=== PATIENT | female | born 1990 | race Caucasian/White ===

== ENCOUNTER 2018-12-17 08:48 | Emergency (ER) | payer OTHER ==
[2018-12-17 09:26] VITALS: BP 118/74
--- NOTE | 2018-12-17 09:50 | UC ---
UC General HPI - HPI Summary HPI Summary: c/o productive cough, body aches, head congestion, Sore throat, HERNANDEZ, fatigue that started Monday. Denies any fever. Needs work note [ End ] no fever, cp or asthma but lungs do feel tight. txing with mucinex. - History of Current Complaint Chief Complaint: UCRespiratory Stated Complaint: ST,COUGH,CONGESTION Time Seen by Provider: 12/17/18 09:41 Hx Obtained From: Patient Hx Last Menstrual Period: 12/07/18 Onset/Duration: Gradual Onset Timing: Constant Pain Intensity: 3 - Allergy/Home Medications Allergies/Adverse Reactions: Allergies Allergy/AdvReac Type Severity Reaction Status Date / Time pseudoephedrine Allergy Anxiety Verified 12/17/18 09:19 [From Sudafed] Home Medications: Home Medications Phenylephrine/Dm/Acetaminop/GG [Mucinex Fast-Max Cold Flu] 2 tab PO Q4H PRN 09/30 [History Confirmed 12/17/18] PMH/Surg Hx/FS Hx/Imm Hx Psychological History: Anxiety, Depression Other History Of: Negative For: HIV, Hepatitis B, Hepatitis C - Surgical History Surgical History: Yes Surgery Procedure, Year, and Place: c-sect 08/24, d and c after miscarriage 2010 - Family History Known Family History: Negative: None - Social History Alcohol Use: Occasionally Substance Use Type: None Smoking Status (MU): Heavy Every Day Tobacco Smoker Type: Cigarettes Amount Used/How Often: 1 PPD Length of Time of Smoking/Using Tobacco: 8 Years Have You Smoked in the Last Year: Yes Household Exposure Type: Cigarettes - Immunization History Most Recent Influenza Vaccination: Current for Review of Systems All Other Systems Reviewed And Are Negative: Yes Constitutional: Negative: Fever Skin: Negative: Rash Eyes: Negative: Eye Redness ENT: Positive: Sore Throat, Sinus Congestion Respiratory: Positive: Cough Cardiovascular: Negative: Palpitations, Chest Pain Musculoskeletal: Positive: Myalgia Neurological: Positive: Headache Physical Exam Triage Information Reviewed: Yes Appearance: Well-Appearing Vital Signs: Initial Vital Signs Temp 97.7 F 12/17/18 09:22 Pulse 92 12/17/18 09:22 Resp 16 12/17/18 09:22 BP 118/74 12/17/18 09:22 Pulse Ox 100 12/17/18 09:22 Vital Signs Reviewed: Yes Eyes: Positive: Conjunctiva Clear ENT: Positive: Pharyngeal erythema - mild, Nasal congestion, Nasal drainage - clear, TMs normal, Uvula midline. Negative: Trismus, Muffled voice, Hoarse voice Neck: Positive: Supple, Tenderness @ - peritonsil, Enlarged Nodes @ - peritonsil Respiratory: Positive: Lungs clear, No respiratory distress, Decreased breath sounds - slight. Negative: Crackles, Rhonchi, Wheezing Cardiovascular: Positive: RRR, No Murmur Abdomen Description: Positive: Nontender Musculoskeletal: Positive: ROM Intact Neurological: Positive: Alert Psychological: Positive: Age Appropriate Behavior Skin Exam: Normal Course/Dx - Differential Dx - Multi-Symptom Differential Diagnoses: Other - no concen for bacterial infection. - Diagnoses Provider Diagnosis: URI (upper respiratory infection), Bronchitis Discharge - Sign-Out/Discharge Documenting (check all that apply): Patient Departure All imaging exams completed and their final reports reviewed: No Studies - Discharge Plan Condition: Stable Disposition: HOME Prescriptions: Albuterol HFA INHALER* [Ventolin HFA Inhaler*] 2 puff INH Q6H #1 mdi Patient Education Materials: Upper Respiratory Infection (DC), Acute Bronchitis (ED) Forms: *Work Release Referrals: Latha Boudreaux NP [Primary Care Provider] - 7 Days - Billing Disposition and Condition Condition: STABLE Disposition: Home
== END 2018-12-17 09:56 | disposition home or self-care (01) ==
LOC: UCCORT 08:48
DX: J06.9 Acute upper respiratory infection, unspecified (principal); J40 Bronchitis, not specified as acute or chronic; F17.210 Nicotine dependence, cigarettes, uncomplicated
CPT/HCPCS: 99212; G0463

== ENCOUNTER 2019-03-03 11:15 | Emergency (ER) | payer OTHER ==
[2019-03-03 12:08] VITALS: BP 126/81
[2019-03-03] MEDS ORDERED: Albuterol/Ipratropium NEB.SOL* Albuterol 2.5 MG/Ipratropium 0.5 MG 3 ML INH ONE (12:10)
--- NOTE | 2019-03-03 12:10 | UC ---
Respiratory Complaint HPI - HPI Summary HPI Summary: Pt presents with c/o nasal congestion, chest congestion, cough, wheezing and sob X 4 days. Pt is a 1/2 ppd smoker. Pt has an albuterol inh that she has been using with some relief. - History of Current Complaint Chief Complaint: UCRespiratory Stated Complaint: CONGESTION,COUGH,BODY AND HEAD ACHES Time Seen by Provider: 03/03/19 11:54 Hx Obtained From: Patient Hx Last Menstrual Period: ONSET TODAY ?: No Onset/Duration: Gradual Onset, Lasting Days, Worse Since - onset Timing: Constant Severity Initially: Mild Severity Currently: Moderate Pain Intensity: 5 Character: Cough: Productive Aggravating Factors: Exertion, Deep Breaths, Recumbent Position Alleviating Factors: Bronchodilator Associated Signs And Symptoms: Positive: Wheezing, URI, Nasal Congestion - Risk Factors Pulmonary Embolism Risk Factors: Smoking Cardiac Risk Factors: Smoking Pseudomonas Risk Factors: Negative Tuberculosis Risk Factors: Smoking - Allergies/Home Medications Allergies/Adverse Reactions: Allergies Allergy/AdvReac Type Severity Reaction Status Date / Time pseudoephedrine Allergy Anxiety Verified 03/03/19 11:55 [From Sudafed] Home Medications: Home Medications Albuterol HFA INHALER* [Ventolin HFA Inhaler*] 2 puff INH Q6H PRN 03/03/19 [ History Confirmed 03/03/19] Phenylephrine/Dm/Acetaminop/GG [Tylenol Cold-Flu Severe Caplet] 2 each PO PRN [History] hydrOXYzine HCL TAB* [Atarax TAB 50 MG *] 50 mg PO BEDTIME PRN 03/03/19 [ History Confirmed 03/03/19] PMH/Surg Hx/FS Hx/Imm Hx Previously Healthy: Yes Psychological History: Anxiety Other History Of: Negative For: HIV, Hepatitis B, Hepatitis C - Surgical History Surgical History: Yes Surgery Procedure, Year, and Place: c-sect 08/24, d and c after miscarriage 2010. - Family History Known Family History: Negative: None - Social History Occupation: Employed Full-time Alcohol Use: None Substance Use Type: None Smoking Status (MU): Heavy Every Day Tobacco Smoker Type: Cigarettes Amount Used/How Often: 1 PPD Length of Time of Smoking/Using Tobacco: 8 Years Have You Smoked in the Last Year: Yes Household Exposure Type: Cigarettes - Immunization History Most Recent Influenza Vaccination: Current for 2014/2015 Season Review of Systems All Other Systems Reviewed And Are Negative: Yes Constitutional: Positive: Fatigue Skin: Positive: Negative Eyes: Positive: Negative ENT: Positive: Sinus Congestion Respiratory: Positive: Shortness Of Breath, Cough Cardiovascular: Positive: Negative Gastrointestinal: Positive: Negative Genitourinary: Positive: Negative Motor: Positive: Negative Neurovascular: Positive: Negative Musculoskeletal: Positive: Negative Neurological: Positive: Negative Psychological: Positive: Negative Is Patient Immunocompromised?: No Physical Exam Triage Information Reviewed: Yes Appearance: Ill-Appearing Vital Signs: Initial Vital Signs Temp 98.3 F 03/03/19 11:59 Pulse 101 03/03/19 11:59 Resp 22 03/03/19 11:59 BP 126/81 03/03/19 11:59 Pulse Ox 95 03/03/19 11:59 Vital Signs Reviewed: Yes Eye Exam: Normal ENT: Positive: Nasal congestion Dental Exam: Normal Neck exam: Normal Respiratory: Positive: Decreased breath sounds, Wheezing Cardiovascular: Positive: Tachycardia Musculoskeletal Exam: Normal Neurological Exam: Normal Psychological Exam: Normal Skin Exam: Normal Diagnostics - Radiology No standard instances Radiology Interpretation Completed By: Radiologist - Corporate Director Of Human Resources: Guzman Wheat C ([id number]) Race Steward: TRANG (GEORGIEANCE) Report Date: 12:17:00 Report Status: Final Start of Report Content = Patient Name: ELIS CASILLAS Medical Record#: [id number] Ordering Physician : Gisselle Egan SWIMMING POOL ATTENDANT Acct.#: [id number] : 1990 Age: 28 Sex: F Location: [facility] Exam Date: 03/03/191216 ADM Status: REG ER Order Information: CHEST PA LAT 2 VWS Accession Number: [id number] CPT: 97735 INDICATION: Cough, shortness of breath. History of tobacco use. COMPARISON: June 18, 2014 TECHNIQUE: Dual energy PA and lateral views of the chest were obtained. REPORT: Clear lungs and pleural spaces. Negative for pneumothorax. The heart, pulmonary vasculature, and mediastinal contours are unremarkable. Unremarkable osseous structures and soft tissue contours. IMPRESSION: #. No evidence for acute intrathoracic disease. <Electronically signed by Guzman Wheat MD in OV> [id number] Dictated By: Guzman Wheat MD Dictated Date/Time: 03/03/191240 Transcribed Date/Time: 03/03/191240 Copy to: CC:Gabi CROCKERP; Gisselle Egan SWIMMING POOL ATTENDANT; Hilario Hunter MD Imaging - [facility] - [facility] [address] [place] [address] ph [phone] ph [phone]) ph [phone]) End of Report Content Respiratory Course/Dx - Course Course Of Treatment: I decided to treat the pt with antibiotics given her long pack hx of smoking. Pt discussed quitting smoking during UC visit. - Differential Dx/Diagnosis Differential Diagnosis/HQI/PQRI: Bronchitis, Exacerbation Of COPD Provider Diagnosis: Pneumonia Discharge ED - Sign-Out/Discharge Documenting (check all that apply): Patient Departure All imaging exams completed and their final reports reviewed: Yes - Discharge Plan Condition: Stable Disposition: HOME Prescriptions: Benzonatate CAP* [Tessalon 100 MG CAP*] 200 mg PO Q8H PRN #30 cap PRN Reason: Cough DOXYcycline CAP(*) [DOXYcycline 100MG CAP(*)] 100 mg PO Q12H #20 cap predniSONE TAB* [Deltasone 10 MG TAB*] 30 mg PO DAILY #12 tab Patient Education Materials: Pneumonia (ED) Forms: *Work Release Referrals: Latha Boudreaux NP [Primary Care Provider] - If Needed - Billing Disposition and Condition Condition: STABLE Disposition: Home
== END 2019-03-03 13:05 | disposition home or self-care (01) ==
LOC: UCCORT 11:15
DX: J18.9 Pneumonia, unspecified organism (principal); F41.9 Anxiety disorder, unspecified; F17.210 Nicotine dependence, cigarettes, uncomplicated; Z79.899 Other long term (current) drug therapy; Z88.8 Allergy status to other drugs, medicaments and biological substances
CPT/HCPCS: 71046; 99212; A9270-GY; G0463

== ENCOUNTER 2019-05-28 12:17 | Emergency (ER) | payer SELFPAY ==
--- NOTE | 2019-05-28 12:21 | UC ---
Knee Pain HPI - HPI Summary HPI Summary: 28 yo female presents with LEFT knee injury. She tells me that yesterday she was at work and lifted a 1yo from the ground - pt lost her balance and fell to her left knee. Sustained small abrasion to her left knee. Since that time has had pain in her medial knee that radiates up her medial thigh. She washed the area, applied neosporin, and a bandage. Today pain in her knee has increased and she has a limp while walking. She is concerned for fracture. Denies numbness or tingling. Nothing OTC for discomfort other than RICE therapy. - History of Current Complaint Stated Complaint: WC S/P FALL LEFT KNEE/RIGHT HIP INJURY Time Seen by Provider: 05/28/19 12:20 Hx Obtained From: Patient Hx Last Menstrual Period: ONSET TODAY Onset/Duration: Sudden Onset Severity Initially: Moderate Severity Currently: Moderate Pain Intensity: 7 Pain Scale Used: 0-10 Numeric - Allergies/Home Medications Allergies/Adverse Reactions: Allergies Allergy/AdvReac Type Severity Reaction Status Date / Time pseudoephedrine Allergy Anxiety Verified 05/28/19 12:34 [From Sudafekevin] Home Medications: Home Medications Buprenorp/Nalox 8-2 MG FILM [Suboxone] 1 mis SL DAILY 05/28/19 [History Confirmed 05/28/19] PMH/Surg Hx/FS Hx/Imm Hx Psychological History: Anxiety Other History Of: Negative For: HIV, Hepatitis B, Hepatitis C - Surgical History Surgical History: Yes Surgery Procedure, Year, and Place: c-sect 08/24, d and c after miscarriage 2010. - Family History Known Family History: Negative: None - Social History Occupation: Employed Full-time Lives: With Family Alcohol Use: None Substance Use Type: None Smoking Status (MU): Heavy Every Day Tobacco Smoker Type: Cigarettes Amount Used/How Often: 1 PPD Length of Time of Smoking/Using Tobacco: 8 Years Have You Smoked in the Last Year: Yes Household Exposure Type: Cigarettes - Immunization History Most Recent Influenza Vaccination: Current for Season Review of Systems All Other Systems Reviewed And Are Negative: No Constitutional: Positive: Negative Skin: Positive: Other - Abrasion left knee Respiratory: Positive: Negative Cardiovascular: Positive: Negative Neurovascular: Positive: Negative Musculoskeletal: Positive: Other: - Left knee pain Neurological: Positive: Negative Psychological: Positive: Negative Physical Exam - Summary Physical Exam Summary: GENERAL: NAD. WDWN. No pain distress. SKIN: Superficial abrasion overlying medial patella. CHEST: No accessory muscle use. Breathing comfortably and in no distress. CV: Pulses intact popliteal, PT, and DP. Cap refill <2seconds MSK: LEFT KNEE: FROM. Moderate TTP about medial patella. Strength 5/5. Mild edema. No obvious bony deformities. No patella apprehension. Negative Shayy, A /P drawer, Jacky, and varus/valgus stress. NEURO: Alert. Sensations intact and symmetric B/L LEs PSYCH: Age appropriate behavior. Triage Information Reviewed: Yes Vital Signs: Vital Signs: Temp Pulse Resp BP Pulse Ox 97 F 75 16 129/73 100 05/28/19 12:36 05/28/19 12:36 05/28/19 12:36 05/28/19 12:36 05/28/19 12:36 Vital Signs Reviewed: Yes Diagnostics - Radiology Left knee XR Radiology Interpretation Completed By: Radiologist Summary of Radiographic Findings: IMPRESSION: Unremarkable left knee. Knee Pain Course/Dx - Course Course Of Treatment: XR as above. Suspect contusion/abrasion. Abrasion re-dressed with neosporin and telfa. Knee BHARAT wrapped. Advised to continue RICE therapy. May take tylenol/ibuprofen as directed for discomfort. - Differential Dx/Diagnosis Provider Diagnosis: Knee abrasion Discharge ED - Sign-Out/Discharge Documenting (check all that apply): Patient Departure All imaging exams completed and their final reports reviewed: Yes - Discharge Plan Condition: Stable Disposition: HOME Patient Education Materials: Abrasion (ED), Knee Pain (ED) Forms: *Work Release Referrals: Latha Boudreaux NP [Primary Care Provider] - Additional Instructions: If you develop a fever, shortness of breath, chest pain, new or worsening symptoms - please call your PCP or go to the ED immediately. The X-Ray of your knee was normal today. 1) Continue to rest, ice, and elevate your knee 2) Change the dressing to the abrasion daily until well healed. 3) Use the BHARAT wrap as needed for comfort 4) If your symptoms do not improve in 5-7 days, please be rechecked. - Billing Disposition and Condition Condition: STABLE Disposition: Home
--- OUTSIDE RECORDS SUMMARY | 2019-05-28 12:34 | XMS REPORT | Continuity of Care Document ---
:1990 External Reference #:[id number] Demographics Address [birth year][address] [address] Home Phone [phone] Mobile Phone [phone] Work Phone [phone] Email Address Preferred Language en Marital Status Declined to Specify/Unknown Buddhism Affiliation Unknown Race White Ethnic Group Declined to Specify/Unknown Author Name Camille Yuan FNP (transmitted by agent of provider Bri Fitzgerald) Address [address] [place] [id number] Care Team Providers Name Role Phone Gabi Boudreaux CLAIMS ADJUSTER CROP - Nurse Care Team Information Cat And Dog Bather Practitioner Problems Active Problems Provider Date Anxiety state Gabi Boudreaux FNP Onset: 01/14/2014 [facility] Onset: 11/06/2012 Opioid dependence Gabi Boudreaux FNP Onset: 10/27/2014 Abdominal mass Gabi Boudreaux FNP Onset: 02/20/2016 Note: 1.9 cm mass Document: 02/20/16 - Limited Abdominal Sonogram Document: 12/28 - ED History And Physical Social History Type Date Description Comments Sex Unknown Tobacco Use Start: Unknown currently smokes 1/2 Pack Daily ETOH Use Denies alcohol use Recreational Drug Use Denies Drug Use Tobacco Use Reviewed: 05/26/17 Patient is a current smoker, smokes every day Tobacco Use Start: Unknown smokes 1 ppd Tobacco Use Start: Unknown Heavy tobacco smoker (more than 10 cigarettes/day) Smoking Status Reviewed: 10/30/18 Patient is a current smoker, smokes every day Allergies, Adverse Reactions, Alerts Active Allergies Reaction Severity Comments Date NKDA 02/17/2015 Apples Swelling in mouth and throat 05/23/2011 Medications Active Medications SIG Qnty Indications Ordering Date Provider Metronidazole take 1 tablet by 14tabs Camille Yuan 11/02/2018 500mg mouth every 12 [employer] Tablets hours for 7 days. no alcohol consumption during treatment and for 24 hours after. Loestrin Fe 06/03 1 tab daily 140tabs Z30.011 [place] MD 06/12/2018 1-20mg-mcg Tablets Ibuprofen take one tablet by 90tabs Janusz, 06/15/2017 800mg Tablets mouth every 6 Jenniferleigh, hours as needed [employer] Hydroxyzine Pamoate Take One Capsule Unknown By Mouth AT 100mg Capsules Bedtime Docusate Sodium Take One Capsule Unknown 100mg By Mouth Twice A Capsules Day as Needed Suboxone Place Two Films Unknown 8-2mg Film Under The Tongue Every Day Maximum Daily Dose 2 Film Fluvoxamine Maleate take 2 and 1/2 Unknown tabs once per day 100mg Tablets at night Medications Administered in Office Medication SIG Qnty Indications Ordering Provider Date PPD Injection Camille Yuan FNP 10/30/2018 Immunizations CPT Code Status Date Vaccine Lot # [id number] Given 04/10/2018 Influenza Virus Vaccine, Quadrivalent, 36 Mos+, [id number] 58670 Given 05/26/2017 Influenza Virus Vaccine, Quadrivalent, Slit Virus, [id number] Im Use 63965 Given 02/22/2016 Influenza Virus Vaccine, Quadrivalent, 36 Mos+, [id number] .[id number] 12420 Given 02/10/2014 flu vaccination 42896 Given 05/25/2012 Gardasil 86304 Given 02/20/2012 Gardasil 15479 Given 02/13/2012 flu vaccination 81267 Given 12/20/2011 Gardasil 50509 Given 08/25/2011 Pneumovax Injection 18386 Given 08/25/2011 Tdap injection 93305 Given 02/17/2011 flu vaccination Vital Signs Date Vital Result Comment 10/30/2018 12:58pm BP Systolic 118 mmHg BP Diastolic 70 mmHg Body Temperature 97.4 F Heart Rate 81 /min Height 61 inches 5'1" Weight 140.25 lb Pain Level 0 BMI (Body Mass Index) 26.5 kg/m2 BSA (Body Surface Area) 1.62 m2 Sweet body weight in kilograms 48 kg O2 % BldC Oximetry 97 % 06/12/2018 9:47am BP Systolic 106 mmHg BP Diastolic 60 mmHg Heart Rate 84 /min Respiratory Rate 18 /min Height 61 inches 5'1" Weight 133.12 lb BMI (Body Mass Index) 25.2 kg/m2 BSA (Body Surface Area) 1.59 m2 Sweet body weight in kilograms 48 kg O2 % BldC Oximetry 96 % Ra Results Test Acquired Date Facility Test Result H/L Range Note CBC 03/10/2019 [facility] White Blood 10.8 K/uL High 3.1-10.7 1 W/Automated [address] Count Diff [place], [place] [id number] [phone] Red Blood Count 4.89 M/uL Normal 3.90-5.40 Hemoglobin 14.5 gm/dL Normal 11.6-15.8 Hematocrit 41.9 % Normal 36.0-46.1 Mean Cell Volume 85.7 fl Normal 80.9-99.0 Mean Corpuscular HGB 29.7 pg Normal 25.9-32.7 Mean Corpuscular HGB Conc 34.6 g/dL High 30.8-34.3 Platelet Count 268 K/uL Normal 155-360 Red Cell Distri Width SD 42.2 fl Normal 36-47 Red Cell Distri Width %CV 13.6 % Normal 11.7-14.4 Mean Platelet Volume 8.9 fl Normal 8.9-12.4 Neut% 53.1 % Normal 40.4-72.8 Lymph % 33.7 % Normal 20.0-42.0 [place] % 8.6 % Normal 4.3-13.2 Eo% 3.3 % Normal 0.0-6.6 Bas% 0.6 % Normal 0.0-1.1 Immature Grans 0.7 % Normal 0.0-5.0 NRBC % 0.0 /100WBC < 10/ 100 WBC Neut# 5.72 K/uL Normal 1.8-7.0 Lymph # 3.63 K/uL Normal 1.0-4.0 [place] # 0.92 K/uL High 0.3-0.9 Eos # 0.35 K/uL Normal 0.0-0.5 Baso # 0.06 K/uL Normal 0.0-0.1 Immature Grans Absolute 0.08 K/uL NRBC # 0.00 K/uL Comprehensive 03/10/2019 [facility] Glucose 88 mg/dL Normal 74-106 Metabolic Panel [address] [place] [address] [phone] BUN 15 mg/dL Normal 7-18 Creatinine 0.8 mg/dL Normal 0.6-1.3 Glom Filtration Rate, Estimate >60 mL/min >60 If >60 mL/min >60 2 BUN/Creat 18.7 ratio Sodium 137 mmol/L Normal 136-145 Potassium 3.7 mmol/L Normal 3.5-5.1 Chloride 106 mmol/L Normal 98-107 Carbon Dioxide 27 mmol/L Normal 21-32 Anion Gap 4 mEq/L Low 8-16 Calcium 8.0 mg/dL Low 8.5-10.1 Total Protein 6.9 g/dL Normal 6.4-8.2 Albumin 3.1 g/dL Low 3.4-5.0 Globulin 3.8 g/dL Normal 1.9-4.3 Alb/Glob 0.8 ratio Bilirubin,Total 0.3 mg/dL Normal 0.2-1.0 Sgot/Ast 14 U/L Low 15-37 3 SGPT/Alt 25 U/L Normal 12-78 Alkaline Phosphatase 101 U/L Normal 45-117 Laboratory test 03/10/2019 [facility] Lipase 52 U/L Low 56-289 finding [address] [place], [place] [id number] [phone] Ua RFX Micro & Culture 03/10/2019 [facility] Urine Color Yellow Yellow II [address] [place], [place] [id number] [phone] Urine Clarity Clear Clear Urine Glucose - Dipstick NEGATIVE mg/dL Negative Urine Bilirubin - Dipstick NEGATIVE Negative Urine Ketone NEGATIVE mg/dL Negative Urine Specific [place] 1.031 High 1.010-1.030 Urine Blood NEGATIVE 0-2 Urine PH 6.5 Normal 6.5-7.5 Urine Protein - Dipstick TRACE mg/dL Negative Urine Urobilinogen - Dipstick < 2.0 mg/dL < 2.0 Urine Nitrite - Dipstick NEGATIVE Negative Urine Leuk Esterase NEGATIVE Negative Source: URINE, CLEAN CAT <SEE NOTE> 4 Laboratory test 03/10/2019 [facility] Urine HCG NEGATIVE Negative 5 finding [address] [facility] (Qualitative) [place], [place] [id number] [phone] Chlam/GC/Tricho 03/10/2019 [facility] Ur Trichomonas NEGATIVE Negative monas PCR, Ur [address] vaginalis,[place] [address] [phone] Ur Chlamydia trachomatis,PCR NEGATIVE Negative Ur Neisseria gonorrhoeae,PCR NEGATIVE Negative 6 1 LOWER ABD PAIN, COUGH, RECENT PNEUMONIA 2 Note: Persistent reduction for 3 months or more in an eGFR <60 mL/min/1.73 m2 defines CKD. Patients with eGFR values >/=60 mL/min/1.73 m2 may also have CKD if evidence of persistent proteinuria is present. The original MDRD equation for estimated GFR is not valid for patients less than 18 years of age. Additional information may be found at www.kdoqi.org. 3 Values below the stated reference ranges of AST and ALT can be seen in normal populations. Clinical correlation is suggested. 4 URINE, CLEAN CATCH 5 FIRST MORNING SPECIMENS GENERALLY CONTAIN THE HIGHEST CONCENTRATION OF HCG AND ARE RECOMMENDED FOR EARLY DETECTION OF . Method: Quidel QuickVue One-Step Immunoassay 6 A negative result for either C. trachomatis and/or N. gonorrhoeae does not preclued an infection because results are dependent on adequate specimen collection, absence of inhibitors, and sufficient DNA to be detected. Procedures Description No Information Available Medical Devices Description No Information Available Encounters Description No Information Available Assessments Description No Information Available Plan of Treatment No Information Available Functional Status Description No Information Available Mental Status Description No Information Available Referrals Description No Information Available
[2019-05-28 12:43] VITALS: BP 129/73
== END 2019-05-28 13:35 | disposition home or self-care (01) ==
LOC: UCCORT 12:17
DX: S80.212A Abrasion, left knee, initial encounter (principal); F17.210 Nicotine dependence, cigarettes, uncomplicated; Z88.8 Allergy status to other drugs, medicaments and biological substances; W18.30XA Fall on same level, unspecified, initial encounter; Y92.9 Unspecified place or not applicable; Y99.0 Civilian activity done for income or pay
CPT/HCPCS: 99212; G0463